=== PATIENT | male | born 1995 | race Caucasian/White ===

== ENCOUNTER 2017-05-04 11:34 | Outpatient (CLI) | payer OTHER | END 2017-05-04 11:35 | disposition home or self-care (01) | LOC: EMS 11:34 | PROVIDERS: ATTEND Surgery | DX: R51 Headache (principal); R11.10 Vomiting, unspecified | CPT/HCPCS: A0425; A0427 ==

== ENCOUNTER 2017-05-04 12:01 | Emergency (ER) | payer OTHER ==
--- NOTE | 2017-05-04 12:57 | ED Physician Documentation ---
PD HPI HEADACHE - Chief complaint Chief Complaint: Neuro - History obtained from History obtained from: Patient, Friend, EMS - History of Present Illness Timing - onset: How many hours ago (1) Timing - onset during: [place] no impact injury nor heavy lifitng.) Timing - duration: Hours (1) Timing - details: Abrupt onset (over several minutes.), Still present Worst headache ever?: Worst headache ever? (yes) Location: Front, Left Quality: Throbbing, Aching. No: Thunderclap Associated symptoms: Nausea. No: Fever, Stiff neck, Eye pain, Vision changes ( but is feeling very light and noise sensitive) Improved by: Dark room, Quiet Worsened by: Light, Noise, Moving Contributing factors: No: Anticoagulated, Hypertension, Recent illness, Trauma Similar symptoms before: Has not had sx before Recently seen: Not recently seen Review of Systems Constitutional: denies: Fever, Chills Nose: denies: Rhinorrhea / runny nose, Congestion Throat: denies: Sore throat Cardiac: denies: Chest pain / pressure Respiratory: denies: Dyspnea, Cough GI: reports: Nausea, Vomiting. denies: Abdominal Pain, Constipation : denies: Dysuria, Frequency Skin: denies: Rash, Lesions, Abrasion (s) Musculoskeletal: denies: Neck pain, Back pain Neurologic: denies: Near syncope, Confused, Altered mental status PD PAST MEDICAL HISTORY - Past Medical History Past Medical History: No Neuro: None Endocrine/Autoimmune: None - Past Surgical History Past Surgical History: No - Present Medications Home Medications: Ambulatory Orders Medication Instructions Recorded Confirmed Ibuprofen 800 mg PO PRN PRN 05/04/17 05/04/17 Ibuprofen 800 mg PO TID #20 tablet 05/04/17 Metoclopramide [Reglan] 10 mg PO ONCE PRN #10 tablet 05/04/17 Tramadol HCl 50 mg PO Q6H PRN #10 tablet 05/04/17 - Allergies Allergies/Adverse Reactions: Allergies Allergy/AdvReac Type Severity Reaction Status Date / Time No Known Drug Allergies Allergy Verified 05/04/17 12:05 - Social History Does the pt smoke?: No Smoking Status: Never smoker - Family History Family history: reports: Other (no FH of migraines). denies: Cerebral aneurysm PD ED PE NORMAL - Vitals Vital signs reviewed: Yes - General General: Alert and oriented X 3, No acute distress, Well developed/nourished, Other (he has towel over his head and face to keep out light and noise) - HEENT HEENT: Atraumatic, PERRL (very light sensitive.), EOMI, Ears normal, Moist mucous membranes, Pharynx benign - Neck Neck: Supple, no meningeal sign, No adenopathy, No JVD - Cardiac Cardiac: RRR, No murmur - Respiratory Respiratory: Clear bilaterally - Abdomen Abdomen: Soft, Non tender - Male Male : Deferred - Rectal Rectal: Deferred - Back Back: No CVA TTP - Derm Derm: Normal color, Warm and dry - Extremities Extremities: No deformity, No tenderness to palpate, Normal ROM s pain - Neuro Neuro: Alert and oriented X 3, 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, No motor deficit, No sensory deficit, Normal speech, Other - Psych Psych: Normal mood Results - Vitals Vitals: Vital Signs - 24 hr 05/04/17 05/04/17 05/04/17 12:03 13:40 14:53 Temperature 37.1 C Heart Rate 95 61 77 Respiratory 16 16 18 Rate Blood Pressure 137/73 H 123/63 123/64 O2 Saturation 100 100 97 Oxygen O2 Source Room air - Labs Labs: Laboratory Tests 05/04/17 05/04/17 13:30 13:30 WBC 7.9 RBC 4.32 L Hgb 13.4 L Hct 37.8 L MCV 87.6 MCH 31.0 MCHC 35.4 RDW 13.5 Plt Count 235 MPV 7.6 Neut # 6.4 Lymph # 1.0 L Larue # 0.4 Eos # 0.0 Baso # 0.0 Absolute Nucleated RBC 0.00 Nucleated RBCs 0.0 Sodium 139 Potassium 3.9 Chloride 104 Carbon Dioxide 26 Anion Gap 9.0 BUN 11 Creatinine 0.8 Estimated GFR (MDRD) 122 Glucose 96 Calcium 8.9 Total Bilirubin 1.2 H AST 21 ALT 24 Alkaline Phosphatase 51 Total Protein 7.1 Albumin 4.5 Globulin 2.6 Albumin/Globulin Ratio 1.7 Lipase 27 - Rads (name of study) head CT Radiology: Prelim report reviewed (normal head CT), EMP read contemporaneously PD MEDICAL DECISION MAKING - ED course Complexity details: re-evaluated patient (feels much better with Reglan, Toradol , Benadryl IV. That, with normal CT (within 6 hours onset of headache with high slice CT scan), migrainous symptoms, and improvement with migraine focused meds , I feel workup is sufficient. ) Departure - Departure Disposition: 01 Home, Self Care Clinical Impression: Sudden onset of severe headache Migraine Qualifiers: Migraine type: without aura Status migrainosus presence: without status migrainosus Intractability: not intractable Qualified Code(s): G43.009 - Migraine without aura, not intractable, without status migrainosus Condition: Stable Record reviewed to determine appropriate education?: Yes Instructions: ED Headache Migraine Follow-Up: [facility] [Primary Care Provider] - Prescriptions: Ibuprofen 800 mg PO TID #20 tablet Metoclopramide [Reglan] 10 mg PO ONCE PRN #10 tablet PRN Reason: Headache Tramadol HCl 50 mg PO Q6H PRN #10 tablet PRN Reason: Pain Comments: rest and drink lots of fluids today. Your tests here are good, so seems presumptively to be new migraine headache. If you get further ones, try combination of Metoclopramide for nausea and migraine, with Ibuprofen and Tylenol or Tramadol and see if it has it go away over 20-30 minutes. If this is not effective then seek further care. If frequent episodes, then follow up with PMD. Many migraine type headaches do not recur or are very infrequent, so will just need to see if a pattern develops for it. Forms: Activity restrictions Discharge Date/Time: 05/04/17 15:03
--- NOTE | 2017-05-04 13:16 | CT Preliminary Report ---
Exam: CT Head W/O IMPRESSION: Normal head CT. [facility] SITE ID: [id number]
--- NOTE | 2017-05-04 13:19 | CT Report ---
EXAM: CT HEAD EXAM DATE: 05/04/2017 12:55 PM. CLINICAL HISTORY: Worst headache ever. COMPARISON: None. TECHNIQUE: Multiaxial CT images were obtained from the foramen magnum to the vertex. IV contrast: Non e. Reformats: Coronal. In accordance with CT protocol optimization, one or more of the following dose reduction techniques w ere utilized for this exam: automated exposure control, adjustment of mA and/or KV based on patient s ize, or use of iterative reconstructive technique. FINDINGS: Parenchyma: No intraparenchymal hemorrhage. No evidence of mass, midline shift, or CT findings of inf arction. Coe-white differentiation is distinct. Extraaxial Spaces: Normal for age. No subdural or epidural collections identified. Ventricles: Normal in size and position. Sinuses: Imaged paranasal sinuses, orbits, and mastoids show no significant abnormality. Bones: No evidence of fracture or calvarial defect. Other: None. IMPRESSION: Normal head CT. [facility] Referring Provider Line: [phone] SITE ID: [id number]
[2017-05-04] MEDS ORDERED: SODIUM CHLORIDE 0.9% 1,000 ML IV ONE (13:24)
[2017-05-04] MEDS ORDERED: METOCLOPRAMIDE 10 MG/2 ML VIAL IVP STA (13:25)
[2017-05-04] MEDS ORDERED: KETOROLAC 30 MG/ML VIAL IVP STA (13:25)
[2017-05-04] MEDS ORDERED: MORPHINE 2 MG/ML SYRINGE IVP STA (13:25)
[2017-05-04] MEDS ORDERED: diphenhydrAMINE INJ 50 MG/ML VIAL IVP STA (13:25)
[2017-05-04] MEDS ORDERED: diphenhydrAMINE INJ 50 MG/ML VIAL ONE (13:28)
[2017-05-04] MEDS ORDERED: METOCLOPRAMIDE 10 MG/2 ML VIAL ONE (13:28)
[2017-05-04] MEDS ORDERED: MORPHINE 2 MG/ML SYRINGE ONE (13:28)
[2017-05-04] MEDS ORDERED: KETOROLAC 30 MG/ML VIAL ONE (13:28)
[2017-05-04 13:40] LABS: BASOPHILS % (AUTO) 0.5 %; EOSINOPHILS % (AUTO) 0.2 %; HCT - HEMATOCRIT 37.8 % (42.0-52.0); HGB - HEMOGLOBIN 13.4 g/dL (14.0-18.0); LYMPHOCYTES % (AUTO) 12.9 %; MEAN CORPUSCULAR HGB CONC 35.4 g/dL (32.0-36.0); MEAN CORPUSCULAR VOLUME 87.6 fL (80.0-94.0); MEAN PLATELET VOLUME 7.6 fL (7.4-11.4); MONOCYTES # (AUTO) 0.4 10^3/uL (0.0-1.0); MONOCYTES % (AUTO) 5.3 %; NEUTROPHILS # (AUTO) 6.4 10^3/uL (1.5-6.6); NEUTROPHILS % (AUTO) 81.1 %; RED BLOOD COUNT 4.32 10^6/uL (4.70-6.10); RED CELL DISTRIBUTION WIDTH 13.5 % (12.0-15.0); UNCORRECTED WHITE BLOOD COUNT 7.9 x10^3/uL; WHITE BLOOD COUNT 7.9 x10^3/uL (4.8-10.8)
[2017-05-04 13:51] LABS: ALBUMIN/GLOBULIN RATIO 1.7 (1.0-2.2); BILIRUBIN,TOTAL 1.2 mg/dL (0.2-1.0); CALCIUM 8.9 mg/dL (8.5-10.3); CREATININE 0.8 mg/dL (0.6-1.2); POTASSIUM 3.9 mmol/L (3.5-5.0); TOTAL PROTEIN 7.1 g/dL (6.7-8.2)
[2017-05-04 14:54] VITALS: BP 123/64
== END 2017-05-04 15:03 | disposition home or self-care (01) ==
LOC: ED 12:01
DX: G43.009 Migraine without aura, not intractable, without status migrainosus (principal)
CPT/HCPCS: 36415; 70450; 80053; 83690; 85025; 96374; 96375; 99284

== ENCOUNTER 2018-07-20 13:19 | Outpatient (CLI) | payer OTHER ==
[2018-07-20] MEDS ORDERED: GADOBUTROL 7.5 MMOL/7.5 ML VIAL ONE (13:28)
[2018-07-20] MEDS ORDERED: GADOBUTROL 7.5 MMOL/7.5 ML VIAL IVP ONE (13:46)
--- NOTE | 2018-07-21 17:01 | MRI Report ---
Reason: RADICULOPATHY,LUMBAR REGION Procedure Date: 07/20/2018 Accession Number: [id number] / [id number] Procedure: MRI - Lumbar Spine W/WO CPT Code: FULL RESULT: EXAM: MRI LUMBAR SPINE WITHOUT AND WITH CONTRAST EXAM DATE: 07/20/2018 02:12 PM. CLINICAL HISTORY: Lumbar radiculopathy. COMPARISONS: None. TECHNIQUE: Multiplanar, multisequence T1-weighted and fluid-sensitive sequences of the lumbar spine from T12 to S1 before and after administration of intravenous contrast. Other: None. IV contrast: 7.5 mL Gadavist. FINDINGS: Spinal Canal: The conus terminates at T11-T12. The conus medullaris and cauda equina are unremarkable. Alignment: No scoliosis or spondylolisthesis. Bone Marrow: There is a transitional lumbosacral vertebral body. This has an enlarged left-sided transverse process with a fibrous union to the sacrum on the left. For the purposes of this examination, it will be labeled L5. No gross fractures or bone lesions. No bone marrow replacement or abnormal enhancement. Disk Levels/Facets: T9-T10: Unremarkable. T10-T11: Unremarkable. T11-T12: Unremarkable. T12-L1: Unremarkable. L1-L2: Small foraminal area protrusions result in minimal bilateral foraminal narrowing. L2-L3: Small foraminal area protrusions result in minimal bilateral foraminal narrowing. L3-L4: A mild posterior disk protrusion and mild facet hypertrophy cause minimal spinal canal and mild bilateral foraminal narrowing. L4-L5: A posterior disk protrusion at L4-L5 is greatest in the left subarticular zone. It causes mild spinal canal, severe left subarticular zone and mild bilateral foraminal narrowing. It pushes the left L5 and S1 nerve roots posteriorly. L5-S1: Moderate disk height loss is present. This may be congenital due to the transitional nature of the L5 vertebral body. Spinal Canal: No enhancing masses within the spinal canal. No epidural abscess. Musculature: Normal. No edema, abnormal enhancement, or fatty atrophy. Other: The visualized retroperitoneum is unremarkable. IMPRESSION: 1. Mild bilateral foraminal narrowing at L3-L4 due to disk and posterior element degenerative changes. 2. Mild spinal canal, severe subarticular zone, and mild bilateral foraminal narrowing at L4-L5 due to a disk protrusion. There is mass effect in the left L5 and S1 nerve roots. 3. Transitional L5 vertebral body. Comment: The following findings are so common in adults without low back pain that while we report their presence, they must be interpreted with caution and in the context of the clinical situation. (Reference Ruby et al, Spine 2001) Prevalence of findings in patients without low back pain: Disk degeneration (any evidence): 92% Disk desiccation/T2 signal loss: 83% Disk height loss: 56% Disk bulge: 64% Disk protrusion: 32% Annular tear/high intensity zone: 38% [facility]
== END 2018-07-20 13:20 | disposition home or self-care (01) ==
LOC: DI 13:19
PROVIDERS: ATTEND Nurse Practitioner Family
DX: M51.16 Intervertebral disc disorders with radiculopathy, lumbar region (principal); M47.896 Other spondylosis, lumbar region; M51.36 Other intervertebral disc degeneration, lumbar region; Q76.49 Other congenital malformations of spine, not associated with scoliosis; M48.061 Spinal stenosis, lumbar region without neurogenic claudication
CPT/HCPCS: 72158; A9585